=== PATIENT | female | born 1980 | race Two or more races ===

== ENCOUNTER 2021-08-22 14:37 | Emergency (ER) | payer OTHER ==
[~2021-08-22] VITALS: Ht 170.2 cm; Wt 92.1 kg
== END 2021-08-22 20:23 | disposition home or self-care (01) ==
LOC: ER 14:37
DX: R42 Dizziness and giddiness (principal); F41.9 Anxiety disorder, unspecified

== ENCOUNTER 2021-10-28 18:54 | Emergency (ER) | payer OTHER ==
[~2021-10-28] VITALS: Ht 170.2 cm; Wt 86.2 kg
[2021-10-29] MEDS ORDERED: PEPCID40 MG PO (04:52)
[2021-10-29] MEDS ORDERED: ZOFRAN8 MG PO (04:52)
== END 2021-10-29 05:03 | disposition home or self-care (01) ==
LOC: ER 18:54
DX: K52.9 Noninfective gastroenteritis and colitis, unspecified (principal); E86.0 Dehydration

== ENCOUNTER 2022-06-03 19:44 | Emergency (ER) | payer OTHER ==
[~2022-06-03] VITALS: Ht 170.2 cm; Wt 88.5 kg
[~2022-06-03 19:44] MED LIST: PEPCID40 MG PO; ZOFRAN8 MG PO
[2022-06-04] MEDS ORDERED: CIPRO500 MG PO (03:45)
[2022-06-04] MEDS ORDERED: NAPROXEN SODIU550 MG PO (03:45)
== END 2022-06-04 03:52 ==
LOC: ER 19:44
DX: N39.0 Urinary tract infection, site not specified (principal); R10.2 Pelvic and perineal pain

== ENCOUNTER 2023-02-22 11:43 | Emergency (ER) | payer OTHER ==
[~2023-02-22] VITALS: Ht 170.2 cm; Wt 87.5 kg
[~2023-02-22 11:43] MED LIST changes: +CIPRO500 MG PO; +NAPROXEN SODIU550 MG PO
== END 2023-02-22 14:41 | disposition home or self-care (01) ==
LOC: ER 11:43
DX: R05.8 Other specified cough (principal); J02.9 Acute pharyngitis, unspecified; J32.8 Other chronic sinusitis; G44.89 Other headache syndrome; Z88.0 Allergy status to penicillin

== ENCOUNTER 2024-08-28 15:56 | Emergency (ER) | payer OTHER ==
[~2024-08-28] VITALS: Ht 165.1 cm; Wt 72.6 kg
[2024-08-28] MEDS ORDERED: ACETAMINOPHEN 500 MG GEL..CAP PO ONE (19:45)
[2024-08-28] MEDS ORDERED: KETOROLAC TROMETHAMINE 60 MG VIAL IM ONE (22:15)
[2024-08-28] MEDS ORDERED: DICLOFENAC SODI50 MG PO (22:16)
== END 2024-08-28 22:43 | disposition home or self-care (01) ==
LOC: ER 15:58
DX: M94.0 Chondrocostal junction syndrome [Tietze] (principal); R07.89 Other chest pain; Z88.0 Allergy status to penicillin